=== PATIENT | male | born 1995 | race Caucasian/White ===

== ENCOUNTER 2017-07-09 20:14 | Emergency (ER) | payer OTHER ==
[2017-07-09] MEDS ORDERED: PROPOFOL 1000 MG/100 ML 100 ML IV STA ×2 (20:22→22:42)
[2017-07-09] MEDS ORDERED: DOPamine 800 MG/500 ML 500 ML IV STA (20:24)
[2017-07-09] MEDS ORDERED: SODIUM CHLORIDE 0.9% 1,000 ML IV ONE (20:24)
--- NOTE | 2017-07-09 20:29 | ED Physician Documentation ---
PD HPI CPR - Stated complaint Stated Complaint: CPR - Chief complaint Chief Complaint: Critical Care - History obtained from History obtained from: Family, EMS - Additional information Additional information: Patient is an otherwise healthy 22-year-old male who has been drinking alcohol heavily this weekend. His states that she went to the store and he was in the shower, when she came home from the store found him laying across the coffee table, with his neck "twisted". He was unresponsive at that time and to the started CPR while calling 911. EMS arrived and the patient was in PEA at a rate of approximately 30-35 bpm. They continued CPR, epi 2 and had return of spontaneous circulation after the second round of epinephrine. He was intubated on the scene with a 7-1/2 ET tube. There is cardiac history in the family, but no young cardiac . The states that the patient does not use any drugs. Review of Systems Unable to obtain: Intubated PD PAST MEDICAL HISTORY - Past Medical History Past Medical History: No - Past Surgical History Past Surgical History: No - Present Medications Home Medications: Ambulatory Orders Medication Instructions Recorded Confirmed No Known Home Medications [No 07/09/17 07/09/17 Known Home Medications] - Allergies Allergies/Adverse Reactions: Allergies Allergy/AdvReac Type Severity Reaction Status Date / Time No Known Drug Allergies Allergy Verified 07/09/17 20:30 - Living Situation Living Situation: reports: With family Living Arrangement: reports: At home - Social History Does the pt drink ETOH?: Yes ETOH Use: Beer, Liquor Does the pt have substance abuse?: No - Family History Family history: reports: Non contributory PD ED PE NORMAL - Vitals Vital signs reviewed: Yes - General General: Other (intubated) - HEENT HEENT: Other (pupils pinpoint B) - Neck Neck: Other (c-collar in place) - Cardiac Cardiac: Strong equal pulses, Other (tachycardic) - Respiratory Respiratory: Other (rhonchi B, bloody secretions in ET tube) - Abdomen Abdomen: Soft, Non distended - Derm Derm: Warm and dry, No rash - Extremities Extremities: No deformity - Neuro Neuro: Other (GCS 3T) Results - Vitals Vitals: Vital Signs - 24 hr 07/09/17 07/09/17 07/09/17 20:25 20:35 20:40 Temperature Heart Rate 125 H 82 77 Respiratory 12 22 24 Rate Blood Pressure 185/137 H 143/93 H 143/88 H O2 Saturation 100 100 99 07/09/17 07/09/17 07/09/17 20:55 21:00 21:35 Temperature 37.1 C Heart Rate 100 139 H Respiratory 18 16 Rate Blood Pressure 149/96 H 175/119 H O2 Saturation 99 92 07/09/17 07/09/17 07/09/17 22:30 22:53 23:09 Temperature Heart Rate 127 H 133 H 140 H Respiratory 16 16 18 Rate Blood Pressure 162/108 H 142/95 H 153/101 H O2 Saturation 98 95 97 07/09/17 07/09/17 23:17 23:37 Temperature Heart Rate 144 H 143 H Respiratory 18 20 Rate Blood Pressure 136/98 H 128/83 H O2 Saturation 95 97 Oxygen O2 Source Mechanical ventilator - EKG (time done) 2036 Rate: Rate (enter#) (80) Rhythm: NSR Solo: Normal Intervals: Normal IA QRS: Normal Ischemia: Normal ST segments - Labs Labs: Laboratory Tests 07/09/17 07/09/17 07/09/17 20:26 20:26 20:26 WBC 31.2 H RBC 5.51 Hgb 16.8 Hct 51.1 MCV 92.7 MCH 30.5 MCHC 32.9 RDW 12.7 Plt Count 317 MPV 7.8 Neut # Not Reportable Lymph # Not Reportable Henderson # Not Reportable Eos # Not Reportable Baso # Not Reportable Absolute Nucleated RBC Not Reportable Band Neuts % (Manual) 36 H Metamyelocytes % 2 H Myelocytes % 1 H Neutrophils # (Manual) 16.2 H Lymphocytes # (Manual) 10.3 H Monocytes # (Manual) 3.1 H Eosinophils # (Manual) 0.3 Basophils # (Manual) 0.6 H Nucleated RBCs Not Reportable Platelet Estimate NORMAL (130-450,000) RBC Morph Micro Appear NORMAL APPEARANCE Bld Gas Analysis Time Sample Site ABG pH ABG pCO2 ABG pO2 ABG HCO3 ABG Total CO2 ABG O2 Saturation ABG Oximetry Spot Check ABG Base Excess Wei Test Respiration Rate O2 Delivery Device O2 Liters/Min Vent Mode FiO2 Tidal Volume PEEP Pressure Support Vent Sodium 135 Potassium 3.2 L Chloride 103 Carbon Dioxide 12 L* Anion Gap 20.0 H BUN 13 Creatinine 1.4 H Estimated GFR (MDRD) 64 L Glucose 330 H Calcium 8.3 L Phosphorus Magnesium Total Bilirubin 0.6 AST 399 H ALT 458 H Alkaline Phosphatase 127 H Troponin I 0.18 Total Protein 7.3 Albumin 4.1 Globulin 3.2 Albumin/Globulin Ratio 1.3 Lipase 32 Salicylates < 6.0 Urine Opiates Screen Ur Oxycodone Screen Urine Methadone Screen Ur Propoxyphene Screen Acetaminophen < 10 L Ur Barbiturates Screen Ur Tricyclics Screen Ur Phencyclidine Scrn Ur Amphetamine Screen U Methamphetamines Scrn U Benzodiazepines Scrn Urine Cocaine Screen U Cannabinoids Screen Ethyl Alcohol 139.9 07/09/17 07/09/17 07/09/17 20:26 20:40 20:43 WBC RBC Hgb Hct MCV MCH MCHC RDW Plt Count MPV Neut # Lymph # Henderson # Eos # Baso # Absolute Nucleated RBC Band Neuts % (Manual) Metamyelocytes % Myelocytes % Neutrophils # (Manual) Lymphocytes # (Manual) Monocytes # (Manual) Eosinophils # (Manual) Basophils # (Manual) Nucleated RBCs Platelet Estimate RBC Morph Micro Appear Bld Gas Analysis Time 2053 Sample Site LEFT RADIAL ABG pH 7.19 L* ABG pCO2 26 L ABG pO2 450 H* ABG HCO3 9.9 L ABG Total CO2 10.7 L* ABG O2 Saturation 100 H ABG Oximetry Spot Check 99 ABG Base Excess -16.4 L Wei Test POSITIVE Respiration Rate O2 Delivery Device BVM O2 Liters/Min 15.00 Vent Mode FiO2 Tidal Volume PEEP Pressure Support Vent Sodium Potassium Chloride Carbon Dioxide Anion Gap BUN Creatinine Estimated GFR (MDRD) Glucose Calcium Phosphorus 8.6 H Magnesium 2.5 Total Bilirubin AST ALT Alkaline Phosphatase Troponin I Total Protein Albumin Globulin Albumin/Globulin Ratio Lipase Salicylates Urine Opiates Screen NEGATIVE Ur Oxycodone Screen NEGATIVE Urine Methadone Screen NEGATIVE Ur Propoxyphene Screen NEGATIVE Acetaminophen Ur Barbiturates Screen NEGATIVE Ur Tricyclics Screen NEGATIVE Ur Phencyclidine Scrn NEGATIVE Ur Amphetamine Screen NEGATIVE U Methamphetamines Scrn NEGATIVE U Benzodiazepines Scrn NEGATIVE Urine Cocaine Screen NEGATIVE U Cannabinoids Screen NEGATIVE Ethyl Alcohol 07/09/17 07/09/17 22:40 23:25 WBC RBC Hgb Hct MCV MCH MCHC RDW Plt Count MPV Neut # Lymph # Henderson # Eos # Baso # Absolute Nucleated RBC Band Neuts % (Manual) Metamyelocytes % Myelocytes % Neutrophils # (Manual) Lymphocytes # (Manual) Monocytes # (Manual) Eosinophils # (Manual) Basophils # (Manual) Nucleated RBCs Platelet Estimate RBC Morph Micro Appear Bld Gas Analysis Time 2172 5069 Sample Site LEFT RADIAL RIGHT RADIAL ABG pH 7.14 L* 7.12 L* ABG pCO2 37 38 ABG pO2 157 H* 118 H ABG HCO3 12.5 L 12.1 L ABG Total CO2 13.6 L 13.2 L ABG O2 Saturation 98 97 ABG Oximetry Spot Check 98 96 ABG Base Excess -15.6 L -16.3 L Wei Test POSITIVE POSITIVE Respiration Rate 16 18 O2 Delivery Device VENTILATOR VENTILATOR O2 Liters/Min Vent Mode SIMV ACCESSED/CONTROL FiO2 100.00 10.00 Tidal Volume 585 410 PEEP 10 5 Pressure Support Vent 1 Sodium Potassium Chloride Carbon Dioxide Anion Gap BUN Creatinine Estimated GFR (MDRD) Glucose Calcium Phosphorus Magnesium Total Bilirubin AST ALT Alkaline Phosphatase Troponin I Total Protein Albumin Globulin Albumin/Globulin Ratio Lipase Salicylates Urine Opiates Screen Ur Oxycodone Screen Urine Methadone Screen Ur Propoxyphene Screen Acetaminophen Ur Barbiturates Screen Ur Tricyclics Screen Ur Phencyclidine Scrn Ur Amphetamine Screen U Methamphetamines Scrn U Benzodiazepines Scrn Urine Cocaine Screen U Cannabinoids Screen Ethyl Alcohol - Rads (name of study) CXR Radiology: Prelim report reviewed, EMP read contemporaneously, See rad report ( Endotracheal tube tip 4 cm above jemima. Upper lobe interstitial densities, question edema, pneumonitis or airways inflammation. ) head CT Radiology: Prelim report reviewed, EMP read contemporaneously, See rad report ( Findings suggestive of diffuse anoxic injury, with qualitative loss of richter- white differentiation and qualitative diffuse parenchymal edema. ) facial bones CT Radiology: Prelim report reviewed, EMP read contemporaneously, See rad report ( No CT evidence of facial fracture. . Please see the separately dictated CT head regarding intracranial findings. ) cervical spine CT Radiology: Prelim report reviewed, EMP read contemporaneously, See rad report ( No acute bony cervical spine injury identified. ) CT chest Radiology: Prelim report reviewed, EMP read contemporaneously, See rad report ( No evidence of pulmonary embolus. . Extensive bilateral central airspace disease consistent with pulmonary edema. . Pneumomediastinum with air tracking into the left bobbi, left pleural spaces and left interstitium with trace left pneumothorax and trace interstitial air. Likely trace right pneumothorax posteromedially as well. Endotracheal tube at the level of the jemima. ) CT abd/pelvis Radiology: Prelim report reviewed, EMP read contemporaneously, See rad report ( No definite solid organ injury. No hemoperitoneum. Periportal edema as well as edema adjacent to the gallbladder, likely secondary to hydration status. ) PD MEDICAL DECISION MAKING - ED course Complexity details: reviewed results, re-evaluated patient, considered differential, d/w family, d/w business solutions consultant ED course: Patient is a 22-year-old male who had an unwitnessed cardiac arrest today. His found him down across the coffee table. Found to be in PEA when EMS arrived, responded to 2 rounds of CPR and epinephrine 2. Had return of spontaneous circulation. Did not have purposeful movements in the emergency department, but did occasionally open his eyes. His pupils remain pinpoint. His head CT is concerning for loss of richter-white differentiation, possible anoxic brain injury. Placed on ARDS net protocol for vent settings. D/w Dr. Marshall ( ICU Prov 2250) who graciously accepts in transfer. Maintained on propofol gtt for sedation. This document was made in part using voice recognition software. While efforts are made to proofread this document, sound alike and grammatical errors may occur. Departure - Departure Disposition: 02 Transfer Acute Care Hosp Clinical Impression: Cardiac arrest, Signs of return of spontaneous circulation Condition: Serious Discharge Date/Time: 07/09/17 23:50
[2017-07-09 20:32] LABS: BASOPHILS % (AUTO) 0.8 %; EOSINOPHILS % (AUTO) 1.2 %; HCT - HEMATOCRIT 51.1 % (42.0-52.0); HGB - HEMOGLOBIN 16.8 g/dL (14.0-18.0); LYMPHOCYTES % (AUTO) 35.1 %; MEAN CORPUSCULAR HEMOGLOBIN 30.5 pg (27.0-31.0); MEAN CORPUSCULAR HGB CONC 32.9 g/dL (32.0-36.0); MEAN CORPUSCULAR VOLUME 92.7 fL (80.0-94.0); MEAN PLATELET VOLUME 7.8 fL (7.4-11.4); MONOCYTES % (AUTO) 3.8 %; NEUTROPHILS % (AUTO) 59.1 %; RED BLOOD COUNT 5.51 10^6/uL (4.70-6.10); RED CELL DISTRIBUTION WIDTH 12.7 % (12.0-15.0); UNCORRECTED WHITE BLOOD COUNT 31.2 x10^3/uL; WHITE BLOOD COUNT 31.2 x10^3/uL (4.8-10.8)
[2017-07-09] MEDS ORDERED: SODIUM CHLORIDE FLUSH 0.9% 10 ML SYRINGE IVP ONE (20:32)
[2017-07-09 20:47] LABS: MAGNESIUM 2.5 mg/dL (1.7-2.8); PHOSPHORUS 8.6 mg/dL (2.5-4.6)
--- NOTE | 2017-07-09 20:47 | XRAY Preliminary Report ---
Exam: XR Chest 1 View IMPRESSION: 1. Endotracheal tube tip 4 cm above jemima. 2. Upper lobe interstitial densities, question edema, pneumonitis or airways inflammation. [facility] SITE ID: [id number]
--- NOTE | 2017-07-09 20:50 | XRAY Report ---
EXAM: CHEST RADIOGRAPHY EXAM DATE: 07/09/2017 08:31 PM. CLINICAL HISTORY: S/p intubation and CPR. COMPARISON: None. TECHNIQUE: 1 view. FINDINGS: Lungs/Pleura: There are bilateral moderate upper lobe interstitial densities. No consolidation. The c ostophrenic angles and lung bases are excluded from the image. Mediastinum: The heart size is normal. The endotracheal tube tip is 4 cm above the jemima. Other: None. IMPRESSION: 1. Endotracheal tube tip 4 cm above jemima. 2. Upper lobe interstitial densities, question edema, pneumonitis or airways inflammation. [facility] Referring Provider Line: [phone] SITE ID: [id number]
[2017-07-09 20:56] LABS: ABG ANALYSIS TIME 2054; ABG BASE EXCESS -16.4 mmol/L (-2.0-3.0); ABG HCO3 9.9 mmol/L (22.0-26.0); ABG PCO2 26 mmHg (34-45)
[2017-07-09 20:57] LABS: ABG O2 DEVICE BVM; ABG OXYGEN SATURATION 100 % (94-98); ABG SATURATION PULSE OXIMETRY% 99 %; ABG SITE OF DRAW LEFT RADIAL; ALLEN TEST POSITIVE
[2017-07-09 21:01] LABS: ABG PH 7.19 (7.35-7.45); ABG PO2 450 mmHg (80-100); ABG TCO2 10.7 MMOL/L (21.0-29.0)
[2017-07-09 21:04] LABS: ALBUMIN/GLOBULIN RATIO 1.3 (1.0-2.2); BILIRUBIN,TOTAL 0.6 mg/dL (0.2-1.0); BUN - BLOOD UREA NITROGEN 13 mg/dL (6-20); CALCIUM 8.3 mg/dL (8.5-10.3); CHLORIDE 103 mmol/L (101-111); CREATININE 1.4 mg/dL (0.6-1.2); GFR - MDRD 64 (>89); GLUCOSE 330 mg/dL (70-100); LIPASE 32 U/L (22-51); POTASSIUM 3.2 mmol/L (3.5-5.0); SALICYLATE < 6.0 mg/dL; SODIUM 135 mmol/L (135-145); TOTAL PROTEIN 7.3 g/dL (6.7-8.2)
[2017-07-09 21:05] LABS: BASOPHILS % (MANUAL) 2 %; CARBON DIOXIDE - CO2 12 mmol/L (21-32); LYMPHOCYTES % (MANUAL) 33 %; NEUTROPHILS % (MANUAL) 16 %
[2017-07-09 21:06] LABS: BAND NEUTROPHILS % (MANUAL) 36 %
[2017-07-09 21:07] LABS: NP AUTO DIFFERENTIAL? YES; NP MAN DIFFERENTIAL? NO; PLATELET ESTIMATE, MANUAL NORMAL (130-450,000) (NORMAL)
[2017-07-09 21:08] LABS: ACETAMINOPHEN < 10 ug/mL (10-30)
[2017-07-09] MEDS ORDERED: VECURONIUM 10 MG VIAL IVP STA (21:24)
[2017-07-09] MEDS ORDERED: VECURONIUM 10 MG VIAL ONE (21:32)
--- NOTE | 2017-07-09 21:45 | CT Preliminary Report ---
Exam: CT Cervical Spine W/O Impression: No acute bony cervical spine injury identified. SITE ID: [id number]
--- NOTE | 2017-07-09 21:45 | CT Preliminary Report ---
Exam: CT Head W/O Impression: Findings suggestive of diffuse anoxic injury, with qualitative loss of richter-white differentiation and qualitative diffuse parenchymal edema. SITE ID: [id number]
--- NOTE | 2017-07-09 21:47 | CT Report ---
EXAM: CT CERVICAL SPINE WITHOUT CONTRAST COMPARISON: None. CLINICAL HISTORY: Fall, CPR, unresponsive TECHNIQUE: Axial CT images were obtained through the cervical spine without contrast. Coronal and sagittal recon structions are created from source data. In accordance with CT protocol optimization, one or more of the following dose reduction techniques w ere utilized for this exam: automated exposure control, adjustment of mA and/or KV based on patient s ize, or use of iterative reconstructive technique. FINDINGS: C0 C1, C1-C2 and dens basion alignment are normal. Facets are normally aligned. No spinous process fractures. Serial soft tissues are unremarkable, allowing for endotracheal intubation. The Temporal mandibular joints are normally located. No mastoid fluid. Upper chest shows no pneumothorax. Since the patchy airspace densities are presumably related to endo tracheal dictation. The endotracheal tube is not seen. Impression: No acute bony cervical spine injury identified. Referring Provider Line: [phone] SITE ID: [id number]
--- NOTE | 2017-07-09 21:48 | CT Report ---
EXAM: CT HEAD WITHOUT CONTRAST COMPARISON: None. CLINICAL HISTORY: Fall, CPR TECHNIQUE: Axial CT images were obtained from the foramen magnum to the vertex without contrast In accordance with CT protocol optimization, one or more of the following dose reduction techniques w ere utilized for this exam: automated exposure control, adjustment of mA and/or KV based on patient s ize, or use of iterative reconstructive technique. FINDINGS: No intracranial hemorrhage. No mass lesions. There is qualitative diffuse parenchymal edema, with qualitative diffuse loss of richter-white different iation. Visualized orbits, paranasal sinuses and mastoids are unremarkable. Ventricular size is normal. Impression: Findings suggestive of diffuse anoxic injury, with qualitative loss of richter-white differentiation and qualitative diffuse parenchymal edema. We are paging the referring at time of dictation, 9:39 PM, 07/09/2017. The above findings were discussed with Dr. Dang by Dr. Mejia Ware at 21:43 hrs on 07/09/17. Referring Provider Line: [phone] SITE ID: [id number]
--- NOTE | 2017-07-09 22:07 | CT Preliminary Report ---
Exam: CT Facial Bones W/O IMPRESSION: 1. No CT evidence of facial fracture. 2. Please see the separately dictated CT head regarding intracranial findings. [facility] SITE ID: [id number]
--- NOTE | 2017-07-09 22:10 | CT Report ---
EXAM: CT MAXILLOFACIAL WITHOUT CONTRAST EXAM DATE: 07/09/2017 09:16 PM. CLINICAL HISTORY: Fall, facial injury. COMPARISONS: Noncontrast CT head obtained concurrently TECHNIQUE: Thin-section axial images were acquired of the face without contrast. Post-processing: Cor onal and sagittal reformats. Other: None. In accordance with CT protocol optimization, one or more of the following dose reduction techniques w ere utilized for this exam: automated exposure control, adjustment of mA and/or KV based on patient s ize, or use of iterative reconstructive technique. FINDINGS: Bones: No fracture or bone lesion. Temporomandibular Joints: The temporomandibular joints are symmetric and normally located. Sinuses: Moderate mucosal thickening right maxillary sinus. Mild mucosal thickening left maxillary si nus. Other: The patient is intubated. IMPRESSION: 1. No CT evidence of facial fracture. 2. Please see the separately dictated CT head regarding intracranial findings. [facility] Referring Provider Line: [phone] SITE ID: [id number]
[2017-07-09] MEDS ORDERED: IOPAMIDOL-300 100 ML VIAL IVP ONE (22:25)
[2017-07-09 22:52] LABS: ABG ANALYSIS TIME 2251; ABG BASE EXCESS -15.6 mmol/L (-2.0-3.0); ABG HCO3 12.5 mmol/L (22.0-26.0); ABG OXYGEN SATURATION 98 % (94-98); ABG PCO2 37 mmHg (34-45); ABG SATURATION PULSE OXIMETRY% 98 %; ABG SITE OF DRAW LEFT RADIAL; ABG TCO2 13.6 MMOL/L (21.0-29.0); ALLEN TEST POSITIVE
[2017-07-09 22:53] LABS: ABG MODE OF VENTILATION SIMV; ABG O2 DEVICE VENTILATOR; ABG PEAK END EXPIRATORY PRESSU 10 cmH2O; ABG PRESSURE SUPPORT VENT 1 cmH2O; ABG RESPIRATORY RATE 16 b/min
[2017-07-09 22:55] LABS: ABG PH 7.14 (7.35-7.45); ABG PO2 157 mmHg (80-100)
--- NOTE | 2017-07-09 23:04 | CT Report ---
EXAM: CT ANGIOGRAM CHEST EXAM DATE: 07/09/2017 10:13 PM. CLINICAL HISTORY: Unresponsive, patient status post CPR. COMPARISON: None. TECHNIQUE: Routine helical imaging was performed through the chest in the pulmonary arterial phase. I V Contrast: Amt/type. Reconstructions: Coronal 3-D MIP reconstructions.Sagittal and coronal. In accordance with CT protocol optimization, one or more of the following dose reduction techniques w ere utilized for this exam: automated exposure control, adjustment of mA and/or KV based on patient s ize, or use of iterative reconstructive technique. FINDINGS: Pulmonary Arteries: Diagnostic quality: Adequate through the segmental arteries. No evidence for acute or chronic pulmona ry emboli. Lungs/Pleura: Extensive predominately central consolidation, greater within the upper lungs consisten t with pulmonary edema. Pneumomediastinum with likely trace right pneumothorax posteromedially as wel l as air tracking to the left hilar region and into the interstitium and along the fissures consisten t with minimal interstitial air and pneumothorax. Mediastinum: Pneumomediastinum. No pericardial fluid. No enlarged mediastinal lymph nodes. Endotrache al tube at the carinal level. Thoracic Aorta: Unremarkable. Other: None. IMPRESSION: 1. No evidence of pulmonary embolus. 2. Extensive bilateral central airspace disease consistent with pulmonary edema. 3. Pneumomediastinum with air tracking into the left bobbi, left pleural spaces and left interstitium with trace left pneumothorax and trace interstitial air. Likely trace right pneumothorax posteromedia lly as well. 4. Endotracheal tube at the level of the jemima. [facility] The above critical findings were discussed with Dr. Dang by Dr. Kendall Esteves at 23:00 hrs o n 07/09/17. Referring Provider Line: [phone] SITE ID: [id number]
[2017-07-09] MEDS ORDERED: HYDROmorphone 1 MG/ML SYRINGE IVP STA (23:07)
--- NOTE | 2017-07-09 23:08 | CT Preliminary Report ---
Exam: CT Abdomen/Pelvis W/ IMPRESSION: 1. No definite solid organ injury. No hemoperitoneum. 2. Periportal edema as well as edema adjacent to the gallbladder, likely secondary to hydration statu xochitl BRODERICK SITE ID: [id number]
--- NOTE | 2017-07-09 23:10 | CT Report ---
EXAM: CT ABDOMEN AND PELVIS EXAM DATE: 07/09/2017 10:13 PM. CLINICAL HISTORY: Unresponsive, status post cardiopulmonary resuscitation. COMPARISONS: None. TECHNIQUE: Routine helical CT imaging was performed through the abdomen and pelvis. IV contrast: 100 cc [id number]. Enteric contrast: No. Reconstructions: Coronal and sagittal. In accordance with CT protocol optimization, one or more of the following dose reduction techniques w ere utilized for this exam: automated exposure control, adjustment of mA and/or KV based on patient s ize, or use of iterative reconstructive technique. FINDINGS: Liver: Normal in contour with mild periportal edema. Gallbladder/Bile Ducts: No cholelithiasis seen with slight edema adjacent the gallbladder, probably a lso periportal edema. Spleen: Normal. Pancreas: Normal. Adrenal Glands: Normal. Kidneys: Normal. No masses or hydronephrosis. Peritoneal Cavity/Bowel: Enteric tube within the body of the stomach. Mild gastric distention. No dil ated loops of large or small intestine. The appendix is seen and is unremarkable. Pelvic Organs: Bladder is decompressed with Bernal catheter present. Prostate unremarkable. Vasculature: No aneurysms or other significant abnormality. Bones: No significant abnormality. Other: None. IMPRESSION: 1. No definite solid organ injury. No hemoperitoneum. 2. Periportal edema as well as edema adjacent to the gallbladder, likely secondary to hydration statu sBailey [facility] Referring Provider Line: [phone] SITE ID: [id number]
[2017-07-09] MEDS ORDERED: HYDROmorphone 1 MG/ML SYRINGE ONE (23:14)
[2017-07-09] MEDS ORDERED: LORazepam 2 MG/ML SYRINGE IVP STA (23:20)
[2017-07-09] MEDS ORDERED: LORazepam 2 MG/ML SYRINGE ONE (23:24)
[2017-07-09 23:34] LABS: ABG ANALYSIS TIME 2335; ABG HCO3 12.1 mmol/L (22.0-26.0); ABG PCO2 38 mmHg (34-45); ABG PO2 118 mmHg (80-100)
[2017-07-09 23:35] LABS: ABG BASE EXCESS -16.3 mmol/L (-2.0-3.0); ABG MODE OF VENTILATION ACCESSED/CONTROL; ABG O2 DEVICE VENTILATOR; ABG OXYGEN SATURATION 97 % (94-98); ABG PEAK END EXPIRATORY PRESSU 5 cmH2O; ABG RESPIRATORY RATE 18 b/min; ABG SATURATION PULSE OXIMETRY% 96 %; ABG SITE OF DRAW RIGHT RADIAL; ABG TCO2 13.2 MMOL/L (21.0-29.0); ALLEN TEST POSITIVE
[2017-07-09 23:37] VITALS: BP 128/83
[2017-07-09 23:37] LABS: ABG PH 7.12 (7.35-7.45)
== END 2017-07-09 23:50 | disposition short-term general hospital (02) ==
LOC: ED 20:14
DX: I46.9 Cardiac arrest, cause unspecified (principal); I48.92 Unspecified atrial flutter; R94.31 Abnormal electrocardiogram [ECG] [EKG]
CPT/HCPCS: 36415; 36600; 51702; 70450; 70486; 71010; 71275; 72125; 74177; 80053; 80306; 80307; 80320; 80329; 82803; 83690; 83735; 84100; 84484; 85025; 93005; 94002; 94770; 96365; 96375; 99285; J1170; J2060; Q9967

== ENCOUNTER 2017-07-09 20:19 | Outpatient (CLI) | payer OTHER | END 2017-07-09 20:20 | disposition critical access hospital (66) | LOC: EMS 20:19 | PROVIDERS: ATTEND Surgery | DX: I46.9 Cardiac arrest, cause unspecified (principal) | CPT/HCPCS: A0425; A0433 ==